=== PATIENT | female | born 1950 | race Caucasian/White ===

== ENCOUNTER 2020-08-24 08:40 | Outpatient (REF) | payer MEDICARE, SELFPAY ==
--- NOTE | 2020-08-24 08:44 | MM_ITS ---
EXAMINATION: MM SCREENING DIGITAL BREAST TOMOSYNTHESIS, BILATERAL CLINICAL INFORMATION: Screening. Asymptomatic. The lifetime risk of breast cancer based on the Tyrer-Cuzick Model is 5%. COMPARISON: Mammography: 08/22/2017, 08/11/2017, 01/18/2016 TECHNIQUE: Digital breast tomosynthesis is performed in both the craniocaudal and mediolateral oblique views along with computer-aided detection (CAD). Synthesized 2D images are generated from the tomosynthesis. FINDINGS: There are scattered areas of fibroglandular density (ACR BI-RADS breast composition Category b). There are no significant masses, abnormal calcifications, or other abnormalities. There are scattered bilateral benign round and some ductal secretory calcifications. No significant changes from prior studies. MM/MM tomosynthesis screening BI IMPRESSION: No significant changes from prior exams. ASSESSMENT: BI-RADS 2: Benign RECOMMENDATION: Routine annual mammography screening. This patient's information was entered into a reminder system with a target due date for their next mammogram.
== END 2020-08-24 08:41 | disposition home or self-care (01) ==
LOC: HO.MAMMO 08:40
PROVIDERS: PCP Family Medicine; Visit Provider Family Medicine
DX: Z12.31 Encounter for screening mammogram for malignant neoplasm of breast (principal)
CPT/HCPCS: 77063; 77067

== ENCOUNTER → 2021-07-29 10:34 | Outpatient (BNVA) | payer MEDICARE, SELFPAY | PROVIDERS: PCP Family Medicine; Visit Provider Internal Medicine | DX: J44.9 Chronic obstructive pulmonary disease, unspecified (principal); Z87.891 Personal history of nicotine dependence | CPT/HCPCS: 99212 ==

== ENCOUNTER 2021-11-08 12:48 | Outpatient (REF) | payer MEDICARE, SELFPAY ==
--- NOTE | ~2021-11-08 | MM_ITS ---
EXAMINATION: MM SCREENING DIGITAL BREAST TOMOSYNTHESIS, BILATERAL CLINICAL INFORMATION: Screening. Asymptomatic. The lifetime risk of breast cancer based on the Tyrer-Cuzick Model is 4%. COMPARISON: Mammography: 08/24/2020, 08/22/2017, 08/11/2017 TECHNIQUE: Digital breast tomosynthesis is performed in both the craniocaudal and mediolateral oblique views along with computer-aided detection (CAD). Synthesized 2D images are generated from the tomosynthesis. FINDINGS: There are scattered areas of fibroglandular density (ACR BI-RADS breast composition Category b). There are no significant masses, abnormal calcifications, or other abnormalities. There are scattered round and ductal secretory calcifications again seen. The axilla and skin contours are unremarkable. No developing density. No significant changes. MM/MM tomosynthesis screening BI IMPRESSION: No mammographic evidence of malignancy. ASSESSMENT: BI-RADS 2: Benign RECOMMENDATION: Routine annual mammography screening. This patient's information was entered into a reminder system with a target due date for their next mammogram.
== END 2021-11-08 12:49 | disposition home or self-care (01) ==
LOC: HO.MAMMO 12:48
PROVIDERS: PCP Family Medicine; Visit Provider Family Medicine
DX: Z12.31 Encounter for screening mammogram for malignant neoplasm of breast (principal)
CPT/HCPCS: 77063; 77067

== ENCOUNTER → 2022-10-03 10:46 | Outpatient (BNVA) | payer MEDICARE, SELFPAY | PROVIDERS: PCP Family Medicine; Visit Provider Internal Medicine | DX: J44.9 Chronic obstructive pulmonary disease, unspecified (principal); Z87.891 Personal history of nicotine dependence | CPT/HCPCS: 99212 ==

== ENCOUNTER 2023-02-27 12:35 | Outpatient (REF) | payer MEDICARE, SELFPAY ==
--- NOTE | ~2023-02-27 | MM_ITS ---
EXAMINATION: MM SCREENING DIGITAL BREAST TOMOSYNTHESIS, BILATERAL CLINICAL INFORMATION: Screening. Asymptomatic. The lifetime risk of breast cancer based on the Tyrer-Cuzick Model is 4%. COMPARISON: Mammography: 11/08/2021, 08/24/2020, 08/22/2017, 08/11/2017 TECHNIQUE: Digital breast tomosynthesis is performed in both the craniocaudal and mediolateral oblique views along with computer-aided detection (CAD). Synthesized 2D images are generated from the tomosynthesis. Additional left MLO view is provided. FINDINGS: There are scattered areas of fibroglandular density (ACR BI-RADS breast composition Category b). There are no significant masses, abnormal calcifications, or other abnormalities. Scattered bilateral round and ductal secretory calcifications are again noted. There is no developing density or architectural abnormality. The axilla and skin contours are unremarkable. No significant changes. MM/MM tomosynthesis screening BI IMPRESSION: No mammographic evidence of malignancy. ASSESSMENT: BI-RADS 2: Benign RECOMMENDATION: Routine annual mammography screening. This patient's information was entered into a reminder system with a target due date for their next mammogram.
== END 2023-02-27 12:36 | disposition home or self-care (01) ==
LOC: HO.MAMMO 12:35
PROVIDERS: PCP Family Medicine; Visit Provider Family Medicine
DX: Z12.31 Encounter for screening mammogram for malignant neoplasm of breast (principal)
CPT/HCPCS: 77063; 77067

== ENCOUNTER 2023-08-10 09:51 | Outpatient (AMB) | payer MEDICARE, SELFPAY ==
--- NOTE | 2023-08-10 10:10 | A.OFFVIS_ITS ---
Intake Vital Signs 08/10/23 10:11 Height 5 ft 4 in Weight 174 lb BMI 29.9 BP 110/64 Pulse 82 Pulse Source Pulse Oximeter Pulse Oximetry (%) 97 Oxygen Delivery Method Room Air Intake Visit Reasons: Pre Op - NEOS - RTKR Intake Note: pt is here for pre-op clearance for total knee replacement right knee, Nov. . pt states she is going well with Qvar, no issues with breathing. Transportation Security Officer Required: No Allergies simvastatin Adverse Reaction (Unknown, Verified 08/10/23 10:52) muscle aches Medication List - Last Reconciled 08/10/23 by Judy Nicolas MD beclomethasone dipropionate 80 mcg/actuation (Qvar RediHaler) 1 inh inhalation BID 30 days Do you need a note to return to daycare/school/sports/work: No HPI Pre Op - NEOS - RTKR HPI Details BRITTON IS 72 YEARS OLD FEMALE, SHE HAS PREVIOUS HISTORY OF SMOKING BUT QUIT ABOUT 6 YEARS AGO, AFTER THAT SHE WAS SMOKING 1 OR 2 CIGARETTES A DAY ONLY ONCE IN A WHILE. PER THE PAST 2 YEARS HE SHE HAS NOT SMOKED AT ALL. SHE DOES HAVE MILD TO MODERATE OBSTRUCTIVE AIRWAY DISORDER WITH SOME RESPONSE TO BRONCHODILATORS, SHE HAS BEEN TREATED FOR ASTHMA/COPD SYNDROME WITH MINIMAL MEDICATION, BECAUSE SHE IS NOT FORMED OF USING TOO MUCH MEDICATION. SHE HAS BEEN ON Q ONLY 1 INHALATION B.I.D. AND REMAINS VERY STABLE. SHE DOES NOT REQUIRE USING ANY RESCUE INHALER. DENIES SHORTNESS OF BREATH ON WALKING AROUND IN THE HOUSE, OR CLIMBING 1 FLIGHT OF STAIRS. SHE HAS WALKS SLOWLY ANYWAY BECAUSE OF HER DEGENERATIVE ARTHRITIS OF THE KNEES. SHE DENIES ANY COUGH. HAS HAD NO ACUTE EXACERBATIONS. [facility] Medical History History of smoking at least 1 pack per day for at least 30 years Asthma-COPD overlap syndrome Social History Patient Tobacco Use Status: Former Tobacco user Review of Systems Const All systems reviewed & are unremarkable except as noted in HPI and below Eyes Reports no additional complaints ENT Reports nasal congestion (ONLY MILD, INTERMITTENT) Card Denies chest pain, Denies irregular heart rhythm, Denies leg edema and Reports dyspnea (MILD, ON DOING ANY HEAVY PHYSICAL WORK) Resp Reports cough (MILD OCCASIONAL), Reports dyspnea (MILD, ON DOING ANY HEAVY PHYSICAL WORK) and Denies wheezing GI Reports no additional complaints Reports no additional complaints Musc Reports no additional complaints Skin/Breast Reports system reviewed and no additional complaints, except as documented Neuro Reports no additional complaints Psych Reports no additional complaints Endo Reports no additional complaints Aller/Immun Denies wheezing Physical Exam Vital Signs: Last Vital Signs Pulse 82 08/10/23 10:11 BP 110/64 08/10/23 10:11 Pulse Ox 97 08/10/23 10:11 Oxygen Delivery Method Room Air 08/10/23 10:11 BMI result Body Mass Index 29.9 Const General: healthy appearing (EXCEPT FOR BEING OVERWEIGHT), comfortable, no acute distress, alert and awake Orientation/consciousness: patient oriented x3 HEENT Head: Yes normal to inspection General nose exam: No nasal polyps present and No nasal discharge present Face and sinus: Yes sinuses nontender Mouth: oropharynx normal Throat: Yes posterior oropharynx normal Eyes General: appearance normal, both eyes and all related structures Neck Neck: Yes normal visual inspection, Yes no lymphadenopathy, Yes trachea midline and Yes no JVD Thyroid: Thyroid normal Chest Chest palpation & inspection: normal inspection of the chest, normal palpation of entire chest wall and no tenderness Resp Other: BREATH SOUNDS ARE SLIGHTLY DISTANT, EQUAL ON BOTH SIDES. NO AUDIBLE WHEEZES OR RHONCHI. NO CREPITATION Cardio Palpation: normal PMI Rate: regular rate Rhythm: regular rhythm Heart sounds: no gallops and no murmurs Peripheral pulses: Peripheral pulses 2+ throughout GI Palpation (GI): Soft to palpation, nontender, No hepatosplenomegaly present and no masses Auscultation: normal bowel sounds Back/Spine/Pelvis Thoracic/Lumbar Spine: thoracic and lumbar spine normal to inspection Skin General skin exam: no rashes or lesions noted Neuro General: patient oriented x3 and no focal motor deficits Cranial nerves: Yes CN's II-XII intact bilaterally Extrem General: Yes normal to inspection, Yes no clubbing, cyanosis or edema and Yes no calf tenderness Psych Appearance: grossly normal Speech and movement: Normal speech and movement present Office Procedures Spirometry Testing Spirometry Comments: Spirometry done in the office, Dr. Nicolas has the results results scanned to her chart. 16563- Spirometry Results Reviewed Results Reviewed: SPIROMETRY PERFORMED IN THE OFFICE TODAY. FVC 63%, FEV1 55%, FEV1 OVER FVC RATIO IS 68 [id number]= 49% COMPARED TO HER RESULTS IN 2016 THE NUMBERS HAVE SLIGHTLY DECLINED. C/W MODERATE DEGREE OF OBSTRUCTIVE AIRWAY DISORDER Assessment & Plan Assessment & Plan (1) History of smoking at least 1 pack per day for at least 30 years: Comment: She does have history of past smoking for about 30 pack years.quit about 10 years ago . Has not been able to join the ANNUAL SCREENING PROGRAM . Code(s): Z87.891 - Personal history of nicotine dependence (2) Asthma-COPD overlap syndrome: Comment: Patient is known to have ACOS . Has been relatively stable on minimal medica tion. She has a tendency to get worse if she does not use the inhaled steroids. Advised to continue using Q-BARRERA 80 mg may use only one puff bid . It is okay for her to visit for follow-up once a year. Code(s): J44.9 - Chronic obstructive pulmonary disease, unspecified Plan: PULMONARY STATUS IS VERY STABLE. SHE IS RELATIVELY ASYMPTOMATIC. NO CONTRAINDICATION TO PLANNED ORTHOPEDIC SURGERY. SHE WOULD CALL MY OFFICE FOR A VISIT, POSTOPERATIVELY IF HER RESPIRATORY SYMPTOMS GET ANY WORSE. Orders: Orders AMB Spirometry Testing Today J44.9 - Chronic obstructive pulmonary disease, unspecified Coding Level of Care Code Est Pt Level 3 (96493) Diagnoses History of smoking at least 1 pack per day for at least 30 years Z87.891 Asthma-COPD overlap syndrome J44.9 CPT Codes Spirometry - CPT: 05335- Spirometry ([id number])
[2023-08-10 10:11] VITALS: BP 110/64; PULSE 82; O2SAT 97; BMI 29.9
== END 2023-08-10 10:48 | disposition home or self-care (01) ==
PROVIDERS: PCP Family Medicine; Visit Provider Internal Medicine
DX: J44.9 Chronic obstructive pulmonary disease, unspecified (principal); Z87.891 Personal history of nicotine dependence
CPT/HCPCS: 94010; 99213

== ENCOUNTER → 2023-08-10 09:51 | Outpatient (BNVA) | payer MEDICARE, SELFPAY | PROVIDERS: PCP Family Medicine; Visit Provider Internal Medicine | DX: J44.9 Chronic obstructive pulmonary disease, unspecified (principal); Z87.891 Personal history of nicotine dependence | CPT/HCPCS: 94010; 99212 ==

== ENCOUNTER 2024-03-01 08:39 | Outpatient (REF) | payer MEDICARE, SELFPAY ==
--- NOTE | ~2024-03-01 | MM_ITS ---
EXAMINATION: MM SCREENING DIGITAL BREAST TOMOSYNTHESIS, BILATERAL CLINICAL INFORMATION: Screening. Asymptomatic. COMPARISON: Mammography: This study is compared with prior exams dating back to 2019. TECHNIQUE: Digital breast tomosynthesis is performed in both the craniocaudal and mediolateral oblique views along with computer-aided detection (CAD). Synthesized 2D images are generated from the tomosynthesis. FINDINGS: There are scattered areas of fibroglandular density (ACR BI-RADS breast composition Category b). There are no significant masses, abnormal calcifications, or other abnormalities. Bilateral benign calcifications are present. MM/MM tomosynthesis screening BI IMPRESSION: No mammographic evidence of malignancy. ASSESSMENT: BI-RADS BI-RADS 2 - Benign Findings RECOMMENDATION: Routine annual mammography screening. 1 year F/U This examination should not preclude the clinical evaluation of a suspicious palpable abnormality. This patient's information was entered into a reminder system with a target due date for their next mammogram.
== END 2024-03-01 08:40 | disposition home or self-care (01) ==
LOC: HO.MAMMO 08:39
PROVIDERS: PCP Family Medicine; Visit Provider Family Medicine
DX: Z12.31 Encounter for screening mammogram for malignant neoplasm of breast (principal)
CPT/HCPCS: 77063; 77067; 94618; 99212

== ENCOUNTER → 2024-03-01 08:45 | Outpatient (BNV) | payer MEDICARE, SELFPAY | PROVIDERS: PCP Family Medicine; Visit Provider Radiology Diagnostic Radiology | DX: Z12.31 Encounter for screening mammogram for malignant neoplasm of breast (principal) | CPT/HCPCS: 77063; 77067 ==

== ENCOUNTER 2024-03-01 14:26 | Outpatient (AMB) | payer MEDICARE, SELFPAY ==
--- NOTE | 2024-03-01 14:39 | MHC.OFFVIS ---
Vital Signs 03/01/24 14:40 Height 5 ft 4 in Weight 163 lb BMI 28.0 BP 110/64 Blood Pressure Location Rt brachial Position Sitting Pulse 69 Pulse Source Pulse Oximeter Pulse Oximetry (%) 98 Oxygen Delivery Method Room Air Intake Visit Reasons: Dr Nicolas pt - LKR - REECE - 03/22 Allergies simvastatin Adverse Reaction (Unknown, Verified 03/01/24 14:44) muscle aches HPI HPI Dr Nicolas pt - LKR - REECE - 03/22: Details: Tabatha is a pleasant 73 year old female, former smoker, 30 pack year history with underlying asthma COPD overlap syndrome. Today she presents for perioperative pulmonary evaluation for upcoming left total knee replacement with NEOS on 03/22/24. At baseline she is well controlled on QVAR, rarely using albuterol. She reports an occasional productive cough with clear sputum, otherwise denies any dyspnea, wheezing or chest tightness. She denies any recent hospitalizations related to respiratory distress or need for antibiotics/prednisone. She does not require supplemental oxygen at this time. She reports having tolerated anesthesia for a total right knee replacement in August 2023. Of note, she did cough up what sounds like a mucous plug and has had significant improvement in respiratory symptoms since. She maintains a quite active regimen, attending the gym 3 times per week with minimal respiratory symptoms. [facility] Medical History History of smoking at least 1 pack per day for at least 30 years Asthma-COPD overlap syndrome Social History Patient Tobacco Use Status: Former Tobacco user Review of Systems Const Denies chills, Denies excessive sweating, Denies fever(s), Denies headache(s) and Denies night sweats Eyes Denies dry eyes, Denies irritation and Denies itchy eyes ENT Reports Normal hearing present, Denies headache(s), Denies nasal congestion, Denies nasal discharge, Denies post nasal drip and Denies sore throat Card Denies chest pain, Denies chest pain at rest, Denies chest pain with activity, Denies claudication, Denies leg edema, Denies dyspnea, Denies dyspnea on exertion, Denies orthopnea and Denies paroxysmal nocturnal dyspnea Resp Denies chest congestion, Denies excessive phlegm production, Denies pain on inspiration, Denies pain with cough, Denies dyspnea, Denies dyspnea on exertion, Denies stridor and Denies wheezing Musc Denies myalgias Neuro Reports Normal hearing present and Denies headache(s) Endo Denies excessive sweating Gabe/Lymph Denies lymphadenopathy Aller/Immun Denies itchy eyes, Denies seasonal rhinorrhea and Denies wheezing Physical Exam Vital Signs: Last Vital Signs Pulse 69 03/01/24 14:40 BP 110/64 03/01/24 14:40 Pulse Ox 98 03/01/24 14:40 Oxygen Delivery Method Room Air 03/01/24 14:40 BMI result Body Mass Index 28.0 Const General: cooperative, healthy appearing, comfortable, no acute distress, well developed and alert Nutritional Appearance: obese Orientation/consciousness: patient oriented x3 Limitations: no limitations HEENT Head: Yes normal to inspection, Yes normocephalic and Yes atraumatic Ears: hearing grossly normal bilaterally and external ears normal Eyes General: appearance normal, both eyes and all related structures Eyelids: Yes eyelids normal Sclerae: sclerae normal EOM: EOMs intact bilaterally Neck Neck: Yes normal visual inspection and Yes no lymphadenopathy Lymphatic: no lymphadenopathy noted Chest Chest palpation & inspection: normal inspection of the chest Resp Effort & Inspection: normal respiratory effort, able to speak in complete sentences, no audible wheezes, no cough, no stridor, not tachypneic, no tripod positioning and no use of accessory muscles Auscultation: clear to auscultation bilaterally Cardio Jugular venous distension: no JVD Rate: regular rate Rhythm: regular rhythm Skin Other: warm, dry General skin exam: no rashes or lesions noted Neuro General: patient oriented x3 Cranial nerves: Yes Normal hearing present Cognition (Neuro): normal cognition Gait exam (Neuro): Normal gait present Extrem General: Yes normal to inspection, Yes capillary refill normal, Yes no clubbing, cyanosis or edema and Yes no pedal edema Psych Appearance: grossly normal and well kempt Speech and movement: Normal speech and movement present and Clear speech present Affect: normal affect Attitude: cooperative Thought process: Normal thought process present Thought content: Normal thought content present Insight: Good insight present (Psych) Judgement: Good judgement present (Psych) Office Procedures 6 Minute Walk Time:: 15:23 SPO2 % at rest: 98 Pulse at rest: 84 SPO2 % during excercise: 94 Pulse during excercise: 100 SPO2 % after excercise: 96 Pulse after excercise: 104 Distance in yards walked: 500 Claire Score: 4 6 Minute Walk (with oxygen) Performance Observations: Patient walked unassisted on level ground at a moderate pace. Patient maintained an O2 saturation of 94-96% and pulse rate of 104 or less for the entirety of the walk. Denies shortness of breath or respiratory distress. Patient has pain with ambulation due to arthritic left knee. No supplemental oxygen was required. 00854 - 6 Minute Walk Results Reviewed Results Reviewed: Assessment & Plan Assessment & Plan (1) Asthma-COPD overlap syndrome: Code(s): J44.9 - Chronic obstructive pulmonary disease, unspecified Category: Medical (2) Encounter for preoperative pulmonary examination: Code(s): Z01.811 - Encounter for preprocedural respiratory examination Category: Medical Plan Tabatha presents for preoperative pulmonary evaluation for proposed left knee replacement with NEOS. She denies respiratory symptoms at this time and has been doing quite well on Qvar. Advised to use continue to use. Respiratory exam unremarkable. 6MWT performed and patient does not require supplemental oxygen. Reviewed spirometry from 07/2023 which revealed moderate obstructive defect.?She has not required steroids or antibiotics in the last three months. At this time, she is considered low risk for perioperative pulmonary complications for proposed left total knee replacement with NEOS on 03/22/24. Consider bronchodilators during the perioperative period. All questions were answered and patient is in agreement of plan. Will follow up for regularly scheduled appointment with Dr. Nicolas or sooner if needed.? Orders: Orders AMB 6 minute walk 03/01/24 J44.9 - Chronic obstructive pulmonary disease, unspecified Medications: Refilled beclomethasone dipropionate 80 mcg/actuation (Qvar RediHaler) 1 inh inhalation BID 10.6 grams 6RF Asthma/Copd 30 days Coding Level of Care Code Est Pt Level 4 (71828) Diagnoses Asthma-COPD overlap syndrome J44.9 Encounter for preoperative pulmonary examination Z01.811 CPT Codes Coding ([id number])
[2024-03-01 14:40] VITALS: BP 110/64; PULSE 69; O2SAT 98; BMI 28.0
[2024-03-01 15:39] VITALS: PULSE 84; O2SAT 98
== END 2024-03-01 15:30 | disposition home or self-care (01) ==
PROVIDERS: PCP Family Medicine; Visit Provider Nurse Practitioner Family
DX: J44.9 Chronic obstructive pulmonary disease, unspecified (principal)
CPT/HCPCS: 94618; 99214

== ENCOUNTER 2025-04-24 11:51 | Outpatient (REF) | payer MEDICARE, SELFPAY ==
--- OUTSIDE RECORDS SUMMARY | 2025-04-24 14:14 | XMS_ITS | Patient Health Record ---
Author Organization [facility] Address [address] [place] [id number] Care Team Providers Care Community Organization Worker Name Role Phone Donovan DRAPER, Amadou Primary Care Provider Nik Matson Jr Unavailable [phone] Reason For Referral No Information Medications Medication SIG (Take, Route, Frequency, Duration) Notes Start Date End Date Status Glucosamine Chondr 1500 Complx Active Vitamin D3 Active Calcium Citrate 950 MG 1 tablet Orally Once a day Active MoviPrep 100 GM as directed before colonoscopy Orally for 1 dose 10/02/2014 Active Qvar 80 MCG/ACT 1 puff Inhalation Tw ice a day Active Problems Problem Type SNOMED Code ICD Code Onset Dates Problem Status W/U Status Risk Notes Problem [id number] Colon cancer screening (V76.51) Active confirmed Plan Of Treatment Future Test Test Name Order Date COLONOSCOPY 10/02/2014 Insurance Providers Payer Name Payer Address Payer Phone Subscriber Number Group Number Insured Name Patient Relationship to Insured Coverage Start Date Coverage End Date [employer] [place] [address] [address] [place] [address] [id number] BRITTON BERNAL Self - patient is the insured Medical (General) History Medical History History ICD Code colonoscopy 03/19/2004 elevated cholesterol cough Surgical History Surgery Date(Month/Year) arthroscopy knee surgery section x2
== END 2025-04-24 11:52 | disposition home or self-care (01) ==
LOC: HO.MAMMO 11:51
PROVIDERS: PCP Family Medicine; Visit Provider Family Medicine
DX: Z12.31 Encounter for screening mammogram for malignant neoplasm of breast (principal)
CPT/HCPCS: 77063; 77067

== ENCOUNTER → 2025-04-24 12:00 | Outpatient (BNV) | payer MEDICARE, SELFPAY | PROVIDERS: PCP Family Medicine; Visit Provider Internal Medicine | DX: Z12.31 Encounter for screening mammogram for malignant neoplasm of breast (principal) | CPT/HCPCS: 77063; 77067 ==

== ENCOUNTER 2025-04-29 08:02 | Outpatient (AMB) | payer MEDICARE, SELFPAY ==
--- OUTSIDE RECORDS SUMMARY | 2025-04-29 08:06 | XMS_ITS | Patient Health Record ---
Author Organization [facility] Address [address] [place] [id number] Care Team Providers Care Pricing Strategist Name Role Phone Donovan DRAPER, Amadou Primary Care Provider Nik Matson Jr Unavailable Reason For Referral No Information Medications Medication [...] Problem Status W/U Status Risk Notes Problem [id number] Colon cancer screening (V76.51) Active confirmed Plan Of Treatment Future Test Test Name Order Date COLONOSCOPY 10/02/2014 Insurance Providers Payer Name Payer Address Payer Phone Subscriber Number Group Number Insured Name Patient Relationship to Insured Coverage Start Date Coverage End Date [employer] [place] [address] [address] [place] [address] [id number] BRITTON BERNAL Self - patient is the insured Medical (General) History Medical History History ICD Code colonoscopy 03/19/2004 elevated cholesterol cough Surgical History Surgery Date(Month/Year) arthroscopy knee surgery section x2
[2025-04-29 08:11] VITALS: BP 122/66; PULSE 94; TEMP 36.4; O2SAT 94; BMI 27.6
--- NOTE | 2025-04-29 08:11 | AM.OFFWIN_ITS ---
Intake Vital Signs 04/29/25 08:11 Height 5 ft 4 in Weight 161 lb BMI 27.6 BP 122/66 Blood Pressure Location Lt brachial Position Sitting Pulse 94 Pulse Source Pulse Oximeter Temp 97.6 F Temp Source Oral Pulse Oximetry (%) 94 Oxygen Delivery Method Room Air Intake Visit Reasons: EP Cellulitis rt leg Intake Note: pt presents with right leg mild discomfort, swelling, redness x few days. pt reports h/o cellulitis Patient Tobacco Use Status: Former Tobacco user Allergies simvastatin Adverse Reaction (Unknown, Verified 04/29/25 08:15) muscle aches HPI HPI Comments History of Present Illness Details History of Present Illness - The patient is a 74-year-old female pr esenting with a blister and redness to the back of the right lower leg. - The blister on the leg was noticed las t week and became crusty over the weekend. - The patient has a history of celluliti s in both legs following total knee replacements about a year ago. - Doxycycline was previously effective i n treating the cellulitis, resolving the condition within a few days. - The patient experiences chills but den ies having a fever. - She has no pain in the calf of the low er leg. - She has no drainage or bleeding. - She has no numbness, tingling, ankle p ain, knee pain, CP, or SOB. Physical Exam General: Cooperative, healthy appearing, comfortable, no acute distress and well developed Orientation: Patient oriented x3 Respiratory: Normal respiratory effort and able to speak in complete sentences. Clear to auscultation bilaterally Cardiovascular: Regular rate and rhythm. Normal S1 and S2 Skin: Eythema noted on the posterior right lower leg and anterior left lower leg. Crusting, rough skin, dry on the right lower leg. No discharge noted. Neuro: Sensation intact. Extremities: No calf tenderness noted. Strength is 5/5 on the LE bilaterally. Ambulates with steady gait. Patient was informed and verbally consented to the use of an ambient scribe for clinic note documentation during this visit. [facility] Medical History History of smoking at least 1 pack per day for at least 30 years Asthma-COPD overlap syndrome Social History Patient Tobacco Use Status: Former Tobacco user Review of Systems Const All systems reviewed & are unremarkable except as noted in HPI and below Physical Exam Vital Signs: Last Vital Signs Temp 97.6 F 04/29/25 08:11 Pulse 94 04/29/25 08:11 BP 122/66 04/29/25 08:11 Pulse Ox 94 04/29/25 08:11 Oxygen Delivery Method Room Air 04/29/25 08:11 BMI result Body Mass Index 27.6 Assessment & Plan Assessment & Plan (1) Cellulitis of leg: Code(s): L03.119 - Cellulitis of unspecified part of limb Qualifiers: Laterality: right Qualified Code(s): L03.115 - Cellulitis of right lower limb Plan Most likely cellulitis vs staph vs lymphedema Plan - Initiate a course of doxycycline for cellulitis. - Advise the patient to avoid sun exposure while on doxycycline. - Monitor for any signs of progression or complications, such as increased swelling or fever. Medications: New doxycycline hyclate 100 mg PO BID PRN 20 tabs 0RF cellulitis 10 days Coding Level of Care Code Est Pt Level 3 (74233) Diagnoses Cellulitis of right lower extremity L03.115 Laterality: right
== END 2025-04-29 08:51 | disposition home or self-care (01) ==
PROVIDERS: PCP Family Medicine; Visit Provider Physician Assistant Medical
DX: L03.115 Cellulitis of right lower limb (principal)

== ENCOUNTER → 2025-04-29 08:02 | Outpatient (BNVA) | payer MEDICARE, SELFPAY | PROVIDERS: PCP Family Medicine; Visit Provider Physician Assistant Medical | DX: L03.115 Cellulitis of right lower limb (principal) | CPT/HCPCS: 99212 ==

== ENCOUNTER → 2025-05-13 19:06 | Outpatient (BNV) | payer MEDICARE, SELFPAY | PROVIDERS: PCP Family Medicine; Visit Provider Radiology Diagnostic Radiology | DX: R06.02 Shortness of breath (principal) | CPT/HCPCS: 71045 ==

== ENCOUNTER 2025-05-13 19:31 | Emergency (ER) | payer MEDICARE, SELFPAY ==
--- NOTE | ~2025-05-13 | XR_ITS ---
CLINICAL HISTORY: SOB 1 view chest x-ray Comparison: None provided Findings: No consolidation, pleural effusion or pneumothorax. Nonspecific prominent elevation of the left hemidiaphragm. Normal size heart. Prominent aortic calcifications. No acute fracture. IMPRESSION: 1. Nonspecific prominent elevation of the left hemidiaphragm. 2. No acute cardiopulmonary process. This document has been electronically signed by: Caprice Alfaro DO on 05/13/2025 20:41:34
[2025-05-13 19:45] VITALS: BP 113/58; BP 120/70; PULSE 115; PULSE 93; RESP 23; O2SAT 82; O2SAT 94; BMI 27.6
--- OUTSIDE RECORDS SUMMARY | 2025-05-13 20:31 | XMS_ITS | Patient Health Record ---
Author Organization [facility] Address [address] [place] [id number] Care Team Providers Care Director Of People Name Role Phone Donovan DRAPER, Amadou Primary [...] Problem Status W/U Status Risk Notes Problem [id number] Colon cancer screening (V76.51) Active confirmed Plan Of Treatment Future Test Test Name Order Date COLONOSCOPY 10/02/2014 Insurance Providers Payer Name Payer Address Payer Phone Subscriber Number Group Number Insured Name Patient Relationship to Insured Coverage Start Date Coverage End Date [employer] [place] [address] [address] [place] [address] [id number] BRITTON BERNAL Self - patient is the insured Medical (General) History Medical History History ICD Code colonoscopy 03/19/2004 elevated cholesterol cough Surgical History Surgery Date(Month/Year) arthroscopy knee surgery section x2
--- NOTE | 2025-05-13 21:40 | ED_ITS ---
HPI - SOB/Dyspnea General Chief Complaint: Dyspnea Stated Complaint: sob Time Seen by Provider: 05/13/25 21:39 Source: patient, family and RN notes reviewed Mode of arrival: EMS Limitations: no limitations History of Present Illness ED Provider: Maria L Mills PA-C HPI Narrative: Patient reporting to the emergency department tonight after having an apneic episode after walking up a hill sweating and going into the restaurant. Patient has a history of COPD but only uses QVAR once a day. She states it was very hot and humid outside today which made her not feel the best and then she was walking up a hill to get to a restaurant made her feel more winded by the time she got inside she fell out of breath. She does not have a rescue inhaler. EMS was called when they arrived she was 80% on room air. Patient received 2 mg IV and albuterol treatment in route. The patient arrived she states that she felt like she was back to her baseline. She is without any chest pain or shortness of breath no palpitations she has no headache or dizziness she has not felt like she was going to pass out she denies any fevers chills or coughing no abdominal discomfort or nausea or vomiting no diarrhea. She is not on oxygen at baseline. Related Data Previous Rx's ?Medication ?Instructions ?Recorded beclomethasone dipropionate 80 1 inh inhalation BID As thma/Copd 03/01/24 mcg/actuation HFA breath activated 30 days #10.6 grams aerosol (Qvar RediHaler) doxycycline hyclate 100 mg tablet 100 mg PO BID PRN ce llulitis 10 04/29/25 days #20 tabs albuterol sulfate 90 mcg/actuation 1 inh inhalation QI D PRN shortness 05/13/25 aerosol inhaler (Ventolin HFA) of breath or wheezing # 6.7 grams Allergies Allergy/AdvReac Type Severity Reaction Status Date / Time simvastatin AdvReac Unknown muscle Verified 05/13/25 19:51 aches Review of Systems Review of Systems: Yes all other systems are reviewed and are negative PMFSH Past Medical History Attestation statement: The following information was validated with the patient. Source: old records reviewed and nursing notes reviewed Medical History History of smoking at least 1 pack per day for at least 30 years Asthma-COPD overlap syndrome Social History Social History Patient Tobacco Use Status: Former Tobacco user Smoked in Last 30 Days: No Use of substances other than those prescribed or required for medical reasons: No Advance Directives: No Advance Directives Information Provided: No Do you have a plan to hurt others: No Plan Physical Exam Vital Signs: Vital Signs: Last Vital Signs Temp 98.3 F 05/13/25 22:21 Pulse 94 05/13/25 22:21 Resp 18 05/13/25 22:21 BP 118/74 05/13/25 22:21 Pulse Ox 100 05/13/25 22:21 O2 Del Method Room Air 05/13/25 22:21 BMI result Body Mass Index 27.6 General: Appears in no acute distress, appears well nourished body habitus is normal, appears stated age. No septic or ill-appearing. Vitals reviewed normal, PMH/Social and Surgical hx reviewed including allergies and current medications. Head: Normocephalic, no abnormal lesions noted. Eyes: EOMI. ENMT: moist oral mucosa, no edematous nasal turbinates, erythema, or purulent d/c noted. No erythema, normal appearing and intact tympanic membrane. Hearing intact. No mastoid tenderness b/l. Normal posterior pharynx and structures. Uvula is midline no trismus. Neck: trachea midline, no lymphadenopathy. No nuchal rigidity. Cardiovascular: peripheral perfusion normal, S1 and S2 present, no M/R/G. RRR Respiratory: no respiratory distress, lungs clear to auscultation b/l, respirations full and symmetric. No flail chest, chest wall tenderness or crepitus noted. Speaking in full smooth sentences. Abdomen: nondistended, nontender Extremities: Warm and appear well perfused. Moving extremities without difficulty. Psych: Cooperative, calm. Neuro: Alert and orientated. No obvious focal deficits. Medical Decision Making Medical Decision Making MDM Narrative: Well appearing 74 y/o F with PMH pertinent for asthma/COPD arriving via EMS for evaluation of SOB prior to arrival. She rec'd 2g mag and albuterol neb prior to arrival from EMS. Upon arrival to ED she reports feeling back to her baseline. She is without a rescue inhaler. She denies infectious sxs less concerning for viral/ bacteiral URI. H and P as above without clinical concern today for this being of cardiac etiology. CXR ordered. No acute findings. SXS likely related to mild asthma exacerbation and as patient was without rescue inhaler did not reverse until receiving treatment. As she has maintained 100 % of RA, add'l treatment was not indicated while here. I discussed the risk vs benefit of prednisone in cases of asthma exacerbation. Patient declines feeling this is needed and I agreed with her. RX for rescue inhaler given. Patient is back to baseline she will return for concerns. She is stable and was d/c to home. Differential Diagnosis Differential Diagnoses: The differential diagnosis associated with the presentation includes See MDM Admission/Observation Consideration of admission/observation: Escalation of care including admission/observation considered Independent Interpretation I performed an independent interpretation of an: Plain X-Ray Interpretation: no PNA, Hemiparesis of left side of diaphragm noted Radiology Impression Discussion of test interpretation with radiology: I have reviewed the radiologist's reading. Radiologist Impression: IMPRESSION: 1. Nonspecific prominent elevation of the left hemidiaphragm. 2. No acute cardiopulmonary process. Independent Historian Clinical information obtained from an independent historian. History obtained from or confirmed by: EMS and Other (Family present) Tests considered The following testing was considered but not selected: Would had considered labs if patient did not already feel back to her baseline prior to arrival or if her history suggested other infectious or cardiac etiology Chronic Conditions Patient?s care impacted by: Other (asthma) Discharge Plan Discharge Clinical Impression: Asthma-COPD overlap syndrome Patient Disposition: Home, Self-Care Additional Instructions: You were seen in the emergency department today after having a hypoxic episode after exertion and being outside. This is felt to be due to environmental causes. Your maintaining 100% oxygen on room air and have not required additional breathing treatments while in the ED your lungs are clear to auscultation bilaterally. Your chest x-ray shows no acute infection you are also in denying any infectious symptoms. As you do not have a rescue inhaler I have given you a prescription for one. As we discussed you can use a rescue inhaler 1-2 puffs approximately 10 minutes before physical activity such as walking outside like he did today or doing laundry. You could also use it for acute shortness of breath/wheezing. If for any reason you do not feel better after using it please down 911 and seek medical attention immediately You should also return to the emergency department for any worsening symptoms such as chest pain or shortness of breath. Prescriptions: New albuterol sulfate [Ventolin HFA] 90 mcg/actuation HFA aerosol inhaler 1 inh inhalation QID PRN (Reason: shortness of breath or wheezing) Qty: 6.7 1RF No Action Qvar RediHaler 80 mcg/actuation HFA aerosol breath activated 1 inh inhalation BID 30 Days Qty: 10.6 6RF doxycycline hyclate 100 mg tablet 100 mg PO BID PRN (Reason: cellulitis) 10 Days Qty: 20 0RF Referrals: Rashmi Hull MD [Primary Care Provider, Medical] Referral Note: Follow-up from her emergency department consider PFTs to reconsider what asthma/COPD treatment patient should be on at baseline Interventions: ED Discharge Assessment Last Done: 05/13/25 22:21 Discharge Date/Time: 05/13/25 22:21 Print Language: Bolivian
[2025-05-13 22:15] VITALS: BP 118/74; PULSE 94; RESP 18; TEMP 36.8; O2SAT 100
[2025-05-13 22:21] VITALS: BP 118/74; PULSE 94; RESP 18; TEMP 36.8; O2SAT 100
== END 2025-05-13 22:21 | disposition home or self-care (01) ==
PROVIDERS: Emergency Provider Emergency Medicine; PCP Family Medicine
DX: J44.9 Chronic obstructive pulmonary disease, unspecified (principal); R06.02 Shortness of breath; R06.81 Apnea, not elsewhere classified
CPT/HCPCS: 71045; 99283; 99284

== ENCOUNTER 2025-10-06 15:07 | Outpatient (AMB) | payer MEDICARE, SELFPAY ==
--- OUTSIDE RECORDS SUMMARY | 2025-09-24 05:40 | XMS_ITS ---
Author Organization [facility] Address [address] [place] [id number] Care Team Providers Care Industrial Painter Name Role Phone Della DRAPER, [facility] Primary Care Provider UnavailNik Deluca Jr Unavailable [phone] REASON FOR VISIT Patient presents today for colon screening Medications Medication SIG (Take, Route, Frequency, Duration) Notes Start Date End Date Status Qvar 80 MCG/ACT Aerosol Solution 1 puff Inhalation Twice a day Active Social History Social History Additional Details Category Social Info Options Details Miscellaneous: Marital status: single Occupation: [employer] at [employer] [place] Vital Signs Blood pressure systolic 001 mm Hg 09/24/20 25 Blood pressure diastolic 001 mm Hg 025 Height 63 in 09/24/2025 Weight 153.8 lbs 09/24/2025 BMI 27.24 kg/m2 09/24/2025 Encounters Encounter Location Date Provider Diagnosis [facility] [address] [place] [id number] 09/24/2025 Nik Noe Jr Diarrhea R19.7 and Change in bowel function R19.4 Assessments Encounter Date Diagnosis (ICD Code) Assessment Notes Treatment Notes Treatment Clinical Notes Section Notes 09/24/2025 Diarrhea (ICD-10 - R19.7) a 09/24/2025 Change in bowel function (ICD-10 - R19.4) a Plan Of Treatment Future Test Test Name Order Date COLONOSCOPY 09/24/2025 Next Appt Details Provider Name:Nik lovell Jr, 10/08/2025 01:00:00 PM, [address] [place] [address] , [place], [place], [phone], Progress Notes * DAPHNEY HANKSB: [birth year] (74 yo F)Acc No.[id number]:09/24/2025 Progress Notes Patient: BRITTON JOHNS Provider: Jarvis Noe MD :1950 A ge:74 Y S ex:Female Date:09/24/2025 Address:[address] [place] [address] Pcp:Rashmi Hull MD Subjective: * Chief Complaints: * P atient presents today for colon screening * Medical History: Colonoscopy 03/19/2004 Elevated cholesterol Cough Medical History Verified * Surgical History: arthroscopy knee surgery section x2 right total hip replacment bilateral knee replacement Surgical History verified. * Hospitalization/Major Diagno stic Procedure: No Hospitalization Documented. Hospitalization Verified. * Family History: F ather: , diagnosed with Heart disease. M other: . F amily History Verified.. denies family hx of liver and colon ca. * Social History: T obacco Use: T obacco Use/Smoking A re you a: former smoker , How long has it been since you last smoked?: 1-5 years. D rugs/Alcohol: A lcohol Screen P oints: 0, Interpretation: Negative. M iscellaneous: M arital status: single. Occupation: [employer] at [employer] [place]. Social History Verified. * Medications: T akingQvar 80 MCG/ACT Aerosol Solution 1 puff Inhalation Twice a day Taking Qvar 80 MCG/ACT Aerosol Solution 1 puff Inhalation Twice a day DiscontinuedCalcium Citrate 950 MG Tablet 1 tablet Orally Once a day Vitamin D3 Glucosamine Chondr 1500 Complx MoviPrep 100 GM Solution Reconstituted as directed before colonoscopy Orally Medication List reviewed and reconciled with the patientDiscontinued Calcium Citrate 950 MG Tablet 1 tablet Orally Once a day Discontinued Vitamin D3 Discontinued Glucosamine Chondr 1500 Complx Discontinued MoviPrep 100 GM Solution Reconstituted as directed before colonoscopy Orally Medication List reviewed and reconciled with the patient * Allergies: y esAllergies Verified. Objective: * Vitals: W t: 153.8 lbs, Ht: 63 in, BMI: 27.24 Index, BP: 001/001 mm Hg, Ht-cm: 160.02 cm, Wt-k.76 kg. Assessment: * Assessment: 1. D iarrhea - R19.7 (Primary) 2 . C hange in bowel function - R19.4 ? a Plan: * Treatment: 2.?Change in bowel function?Procedure: COLONOSCOPY (Ordered for 09/24/2025)* sched for 10/08/25 at 1:00pm macmiralax * Preventive Medicine: Counseling: C are goal follow-up plan: A yulissa Normal BMI Follow-up D ietary management education, guidance, and counseling, B IL management provided Y es. Screenings: F all Risk Screening F all Risk Assessment: N o falls in the past year, S creening: N o falls in the past year, P onur of Care: N ot documented, no reason specified. Billing Information: * Procedure Codes: * The named appointment provid er may or may not be the originator of this progress note, and it is not deemed complete until electronically signed by the appointment provider. Sign off status: Pending * Provider: Jarvis Noe MD Date: 11/24/2024 Generated for Caleb smith/Emeka/Kenzieitting on: 12/08/2024 12:39 AM EST
[2025-10-06 15:11] VITALS: BP 122/60; PULSE 114; O2SAT 96; BMI 26.3
--- NOTE | 2025-10-06 15:11 | A.OFFVIS_ITS ---
Vital Signs 10/06/25 15:11 Height 5 ft 4 in Weight 153 lb BMI 26.3 BP 122/60 Blood Pressure Location Lt brachial Position Sitting Pulse 114 H Pulse Source Pulse Oximeter Pulse Oximetry (%) 96 Oxygen Delivery Method Room Air Intake Visit Reasons: Asthma-COPD Intake Note: pt is here for a follow up and needs a refill on qvar, breathing is very good. Risk Compliance Analyst Required: No Window Unit Air Conditioning Mechanic: Window Unit Air Conditioning Mechanic offered & declined Allergies simvastatin Adverse Reaction (Unknown, Verified 10/06/25 15:38) muscle aches Medication List - Last Reconciled 10/06/25 by Judy Nicolas MD albuterol sulfate 90 mcg/actuation (Ventolin HFA) 2 puffs inhalation Q4-6H PRN beclomethasone dipropionate 80 mcg/actuation (Qvar RediHaler) 1 inh inhalation BID 30 days Do you need a note to return to daycare/school/sports/work: No HPI HPI Asthma-COPD: Details: JERSEY IS 74 YEARS OLD VERY PLEASANT FEMALE, A CASE OF BRONCHIAL ASTHMA, WHO IS COMING TO SEE ME AFTER ALMOST 2 YEARS. IN THE MEANTIME SHE HAS BEEN VERY STABLE AND DOING WELL TO THE POINT THAT SHE HAS BEEN USING QVAR ONLY NEEDED. RECENTLY SHE WAS ON A CRUISE AND THERE SHE DEVELOPED AN ACUTE EPISODE OF SHORTNESS OF BREATH. SHE DID NOT HAVE A RESCUE INHALER WITH HER. SHE WAS TAKEN TO A LOCAL HOSPITAL EMERGENCY ROOM AND TREATED WITH ALBUTEROL. AND SENT BACK ON THE CRUISE. SHE COMES TO BE CHECKED AND TO HAVE THE PRESCRIPTIONS UPDATED. [facility] Medical History Former smoker Arthritis History of smoking at least 1 pack per day for at least 30 years Asthma-COPD overlap syndrome Surgical History Hx of arthroscopy of knee History of History of total right hip replacement (06/2024) History of bilateral knee replacement Social History Household Members: None Housing: House Are you a primary primary care nurse to a significant other at home: No Do you presently have visiting nurse or other home services: No Patient Tobacco Use Status: Former Tobacco user Tobacco use type: Cigarette Review of Systems Const All systems reviewed & are unremarkable except as noted in HPI and below Eyes Reports no additional complaints ENT Reports nasal congestion (ONLY MILD, INTERMITTENT) Card Denies chest pain, Denies irregular heart rhythm, Denies leg edema and Reports dyspnea (MILD, ON DOING ANY HEAVY PHYSICAL WORK) Resp Reports cough (MILD OCCASIONAL), Reports dyspnea (MILD, ON DOING ANY HEAVY PHYSICAL WORK) and Denies wheezing GI Reports no additional complaints Reports no additional complaints Musc Reports no additional complaints Skin/Breast Reports system reviewed and no additional complaints, except as documented Neuro Reports no additional complaints Psych Reports no additional complaints Endo Reports no additional complaints Aller/Immun Denies wheezing Physical Exam Vital Signs: Last Vital Signs Pulse 114 H 10/06/25 15:11 BP 122/60 10/06/25 15:11 Pulse Ox 96 10/06/25 15:11 Oxygen Delivery Method Room Air 10/06/25 15:11 BMI result Body Mass Index 26.3 Const General: healthy appearing (EXCEPT FOR BEING OVERWEIGHT), comfortable, no acute distress, alert and awake Orientation/consciousness: patient oriented x3 HEENT Head: Yes normal to inspection General nose exam: No nasal polyps present and No nasal discharge present Face and sinus: Yes sinuses nontender Mouth: oropharynx normal Throat: Yes posterior oropharynx normal Eyes General: appearance normal, both eyes and all related structures Neck Neck: Yes normal visual inspection, Yes no lymphadenopathy, Yes trachea midline and Yes no JVD Thyroid: Thyroid normal Chest Chest palpation & inspection: normal inspection of the chest, normal palpation of entire chest wall and no tenderness Resp Other: BREATH SOUNDS ARE SLIGHTLY DISTANT, EQUAL ON BOTH SIDES. NO AUDIBLE WHEEZES OR RHONCHI. NO CREPITATION Cardio Palpation: normal PMI Rate: regular rate Rhythm: regular rhythm Heart sounds: no gallops and no murmurs Peripheral pulses: Peripheral pulses 2+ throughout GI Palpation (GI): Soft to palpation, nontender, No hepatosplenomegaly present and no masses Auscultation: normal bowel sounds Back/Spine/Pelvis Thoracic/Lumbar Spine: thoracic and lumbar spine normal to inspection Skin General skin exam: no rashes or lesions noted Neuro General: patient oriented x3 and no focal motor deficits Cranial nerves: Yes CN's II-XII intact bilaterally Extrem General: Yes normal to inspection, Yes no clubbing, cyanosis or edema and Yes no calf tenderness Psych Appearance: grossly normal Speech and movement: Normal speech and movement present Assessment & Plan Assessment & Plan (1) History of smoking at least 1 pack per day for at least 30 years: Comment: She does have history of past smoking for about 30 pack years. quit about 11 years ago . Has not been able to join the ANNUAL SCREENING PROGRAM . Code(s): Z87.891 - Personal history of nicotine dependence Category: Social Hx Plan: I THINK SHE IS DOING VERY WELL AND IS NO NEED OF ANY LUNG SCREENING PROGRAM AT THIS TIME (2) Asthma-COPD overlap syndrome: Comment: SHE HAS HAD MILD ASTHMA COPD SYNDROME. SHE DID VERY WELL WITH THE USE OF QVAR REDIHALER . HOWEVER IN THE LAST 2 YEARS OR SO SHE HAS BEEN USING QVAR ONLY ONCE OR TWICE A WEEK, AND STAYED WELL. Code(s): J44.9 - Chronic obstructive pulmonary disease, unspecified Category: Medical Plan: I SUGGEST THAT SHE SHOULD USE Q WERE-80 REDIHALER 1 PUFF B.I.D. P.R.N. IF SHE STARTS HAVING SYMPTOMS OF REPEATED COUGH OR WHEEZING SHE MAY ALSO KEEP ALBUTEROL HFA ON HAND AND USE 1 OR 2 PUFFS Q.6 HOURS PRN . Coding Level of Care Code Est Pt Level 3 (03593) Diagnoses History of smoking at least 1 pack per day for at least 30 years Z87.891 Asthma-COPD overlap syndrome J44.9
--- OUTSIDE RECORDS SUMMARY | 2025-10-07 00:38 | XMS_ITS | Patient Health Record ---
Author Organization [facility] Address [address] [place] [phone] Care Team Providers Care Medical Imaging Tech Name Role Phone Della DRAPER, Rashmi Primary Care Provider Unavailab Nik Berrios Jr Unavailable [phone] Reason For Referral No Information Medications Medication SIG (Take, Route, Frequency, Duration) Notes Start Date End Date Status Qvar 80 MCG/ACT Aerosol Solution 1 puff Inhalation Twice a day Active Immunizations Vaccine Route Administration Date Status Comme nts Influenza Unknown 09/13/2024 Administered Social History Social History Additional Details Category Social Info Options Details Miscellaneous: Marital status: single Occupation: [employer] at [employer] [place] Problems Problem Type SNOMED Code ICD Code Onset Dates Problem Status W/U Status Risk Notes Problem Colon cancer screening (991587344) Colon cancer screening (V76.51) Active confirmed Vital Signs Blood pressure diastolic 001 mm Hg 09/24/2025 Height 63 in 09/24/2025 Blood pressure systolic 001 mm Hg 09/24/2025 Weight 153.8 lbs 09/24/2025 BMI 27.24 kg/m2 09/24/2025 Encounters Encounter Location Date Provider Diagnosis [facility] [address] [place] [id number] 09/24/2025 Nik Noe Jr Diarrhea R19.7 and Change in bowel function R19.4 Assessments Encounter Date Diagnosis (ICD Code) Assessment Notes Treatment Notes Treatment Clinical Notes Section Notes 09/24/2025 Diarrhea (ICD-10 - R19.7) a 09/24/2025 Change in bowel function (ICD-10 - R19.4) a Plan Of Treatment Future Test Test Name Order Date COLONOSCOPY 10/02/2014 COLONOSCOPY 09/24/2025 Next Appt Details Provider Name:Nik hermosillojohnnie De La Fuente, 10/08/2025 01:00:00 PM, [address] [place] [address] , [place], [place], [id number], Insurance Providers Payer Name Payer Address Payer Phone Subscriber Number Group Number Insured Name Patient Relationship to Insured Coverage Start Date Coverage End Date MEDICARE OF [place] [address] [place] [address] [id number] [employer] Self - patient is the insured 6 [employer] ATTN CLAIMS [address] [place] [address] [phone] [id number] [employer] Self - patient is the insured Medical (General) History Medical History History ICD Code colonoscopy 03/19/2004 elevated cholesterol cough Surgical History Surgery Date(Month/Year) arthroscopy knee surgery section x2 right total hip replacment bilateral knee replacement
== END 2025-10-06 15:41 | disposition home or self-care (01) ==
LOC: HO.HPS 15:07
PROVIDERS: PCP Family Medicine; Visit Provider Internal Medicine
DX: Z87.891 Personal history of nicotine dependence (principal); J44.9 Chronic obstructive pulmonary disease, unspecified
CPT/HCPCS: 99213

== ENCOUNTER → 2025-10-06 15:07 | Outpatient (BNVA) | payer MEDICARE, SELFPAY | PROVIDERS: PCP Family Medicine; Visit Provider Internal Medicine | DX: J44.9 Chronic obstructive pulmonary disease, unspecified (principal); Z87.891 Personal history of nicotine dependence | CPT/HCPCS: 99212 ==

== ENCOUNTER 2025-10-08 12:01 | Day surgery (SDC) | payer MEDICARE, SELFPAY ==
--- NOTE | 2025-10-06 10:54 | HO.ANESPROP2 ---
Documented by User: Raven Heart NP 10/07/25 08:43 HPI - Anesthesia Eval Consult details Narrative: 74yo F for Colonoscopy Follows [facility] [place] pulmo for COPD. Stable at 10/06/25 office visit PMFSH Active Problems Active Problems: All Active Problems Encounter for preoperative pulmonary examination (Acute) History of smoking at least 1 pack per day for at least 30 years (Acute) Asthma-COPD overlap syndrome (Acute) Past Medical History Medical History (Updated 10/06/25 @ 15:43 by Judy Nicolas MD) Former smoker Arthritis History of smoking at least 1 pack per day for at least 30 years Asthma-COPD overlap syndrome Surgical History Surgical History (Updated 10/08/25 @ 12:39 by Jennifer Howard RN) Hx of tonsillectomy Hx of arthroscopy of knee History of History of total right hip replacement (06/2024) History of bilateral knee replacement Social History Social History Household Members: None Housing: House Are you a primary day care home mother to a significant other at home: No Do you presently have visiting nurse or other home services: No Patient Tobacco Use Status: Former Tobacco user Tobacco use type: Cigarette Use of substances other than those prescribed or required for medical reasons: No Have you been hit, kicked, punched, or otherwise hurt by someone within the past year? If so, by whom?: No Are you DNR?: No Advance Directives: No Advance Directives Information Provided: Yes Advance Directives on File: No Patient : No : No Meds Allergies Allergy/AdvReac Type Severity Reaction Status Date / Time No Known Allergies Allergy Verified 10/08/25 12:36 Home Medications ?Medication ?Instructions ?Recorded ?Confirmed ?Last Taken ?Type albuterol sulfate 90 mcg/actuation 2 puff inhalation Q4-6H PRN sob 10/06/25 10/08/25 Unknown History aerosol inhaler (Ventolin HFA) beclomethasone dipropionate 80 1 inh inhalation BID PRN 10/08/25 10/06/25 Unknown History mcg/actuation HFA breath activated Asthma/Copd aerosol (Qvar RediHaler) Assessment and Plan Assessment Anesthesia Assessment: Chart Reviewed Documented by User: Renetta Serra MD 10/08/25 12:49 PMFSH Past Medical History Medical History (Updated 10/06/25 @ 15:43 by Judy Nicolas MD) Former smoker Arthritis History of smoking at least 1 pack per day for at least 30 years Asthma-COPD overlap syndrome Family History Family history of problems with anesthesia: No Surgical History Surgical History (Updated 10/08/25 @ 12:39 by Jennifer Howard RN) Hx of tonsillectomy Hx of arthroscopy of knee History of History of total right hip replacement (06/2024) History of bilateral knee replacement History of Problems with Anesthesia: No Social History Social History Household Members: None Housing: House Are you a primary day care home mother to a significant other at home: No Do you presently have visiting nurse or other home services: No Patient Tobacco Use Status: Former Tobacco user Tobacco use type: Cigarette Use of substances other than those prescribed or required for medical reasons: No Have you been hit, kicked, punched, or otherwise hurt by someone within the past year? If so, by whom?: No Are you DNR?: No Advance Directives: No Advance Directives Information Provided: Yes Advance Directives on File: No Patient : No : No Meds Allergies Allergy/AdvReac Type Severity Reaction Status Date / Time No Known Allergies Allergy Verified 10/08/25 12:36 Home Medications ?Medication ?Instructions ?Recorded ?Confirmed ?Last Taken ?Type albuterol sulfate 90 mcg/actuation 2 puff inhalation Q4-6H PRN sob 10/06/25 10/08/25 Unknown History aerosol inhaler (Ventolin HFA) beclomethasone dipropionate 80 1 inh inhalation BID PRN 10/08/25 10/06/25 Unknown History mcg/actuation HFA breath activated Asthma/Copd aerosol (Qvar RediHaler) Exam Airway Mallampati Class: II TM Dist: >3cm Neck ROM: Full Partial: Upper and Lower Heart: rrr Lungs: cta Assessment and Plan Assessment Anesthesia Assessment: Anesthesia Plan Discussed Final Anesthetic Review Family History of Problems with Anesthesia: No History of Problems with Anesthesia: No NPO: Yes ASA Class: III Final Preanesthetic Review: No Changes in Pt Med Stat, Meds/Allgs Chart Reviewed and Consent Obtained/Reviewed Patient Risk: Low Procedure Risk: Low Anesthetic Plan Anesthetic Plan: MAC: Disposition: Standard PACU
[2025-10-06 12:55] VITALS: BMI 26.3
--- NOTE | 2025-10-08 12:38 | MHC.SHP ---
Pre-Procedural Eval Section A - 24 Hr Update-Section A only Date of Service: 10/08/25 The patient is an INPATIENT: No Changes since office visit: No Cold of Flu in the past 2 weeks, No New Medical Problems, No Changes in Medication and No Patient answered all questions The patient has been examined within 24 hours of the surgical procedure. The History & Physical has been completed within 30 days and I have reviewed it.: Yes Section B - Complete if H&P > 30 days Chief Complaint: Change in bowel habit,diarrhea Allergies: Allergies Allergy/AdvReac Type Severity Reaction Status Date / Time No Known Allergies Allergy Verified 10/08/25 12:36 Plan I have reviewed the history and physical and performed a pertinent physical examination on my patient. No changes have occurred unless specified. Time Spent With Patient Time: Total time managing care of this patient today ____ minutes.
[2025-10-08 12:40] VITALS: BMI 25.8
[2025-10-08 12:59] VITALS: BP 141/84; PULSE 111; RESP 16; TEMP 36.6; O2SAT 96
[2025-10-08] MEDS: Lactated Ringers 1,000 ML 100 ML IVCONT (13:08)
[2025-10-08 14:17] VITALS: BP 134/75; PULSE 98; RESP 16; TEMP 36.2; O2SAT 94
[2025-10-08 14:31] VITALS: BP 142/79; PULSE 98; RESP 16; O2SAT 94
[2025-10-08 14:46] VITALS: BP 143/82; PULSE 82; RESP 16; TEMP 36.1; O2SAT 97
--- NOTE | 2025-10-08 17:33 | OP_ITS ---
DATE OF SERVICE: 10/08/2025 SURGEON: Nik Noe MD INDICATIONS: Change in bowel movements and diarrhea. PREOPERATIVE DIAGNOSIS: POSTOPERATIVE DIAGNOSIS: PROCEDURE PERFORMED: Colonoscopy to the terminal ileum with biopsy. ESTIMATED BLOOD LOSS: COMPLICATIONS: ANESTHESIA: Monitored anesthesia care. ASSISTANTS: SPECIMENS: DESCRIPTION OF PROCEDURE: History and physical was performed. The risks and benefits of the procedure were explained to the patient, and informed consent was obtained. The patient was placed in the left lateral decubitus position. A digital rectal exam was performed and was found to be normal. The Olympus pediatric video colonoscope was introduced into the rectum and advanced to the cecum. The cecum was identified by transillumination, palpation, and identification of ileocecal valve. Examination was performed. The scope was removed. She tolerated the procedure well and was taken to recovery area in stable condition. FINDINGS: The terminal ileum was examined and appeared normal. This was biopsied. The visualized colonic mucosa was normal. The appendiceal orifice was patulous. No colitis was identified. Biopsies were obtained from the right colon and from the sigmoid. The quality of the prep was good. Retroflexed examination showed small to moderate-sized internal hemorrhoids, and there were also hypertrophic anal papillae. IMPRESSION: Normal colonoscopy. RECOMMENDATION: Follow up the biopsy results. MD THEA Reyes/CHRISTAL / [id number]
== END 2025-10-08 15:31 | disposition home or self-care (01) ==
PROVIDERS: PCP Family Medicine; Visit Provider Internal Medicine Gastroenterology
PROC: 0DJD8ZZ Inspection of Lower Intestinal Tract, Via Natural or Artificial Opening Endoscopic (ICD-10-PCS; CPT 45378; principal; 2025-10-08 13:00)
DX: R19.4 Change in bowel habit (principal); R19.7 Diarrhea, unspecified; K64.8 Other hemorrhoids; K62.89 Other specified diseases of anus and rectum; K57.30 Diverticulosis of large intestine without perforation or abscess without bleeding; J44.9 Chronic obstructive pulmonary disease, unspecified; E78.00 Pure hypercholesterolemia, unspecified; Z79.51 Long term (current) use of inhaled steroids; Z96.653 Presence of artificial knee joint, bilateral; Z96.641 Presence of right artificial hip joint; Z87.891 Personal history of nicotine dependence
CPT/HCPCS: 45380; 88305; J2704